=== PATIENT | male | born 1935 | race Caucasian/White ===

== ENCOUNTER 2016-04-17 11:52 | Inpatient (IN) | payer MEDICARE, OTHER ==
[2016-04-17] MEDS ORDERED: ASPIRIN EC81 MG PO (14:26)
[2016-04-17] MEDS ORDERED: PULMICORT0.5 MG/22 INH (14:27)
[2016-04-17] MEDS ORDERED: COREG12.5 M1 PO (14:28)
[2016-04-17] MEDS ORDERED: COREG25 M1 PO (14:29)
[2016-04-17] MEDS ORDERED: IPRAT-ALBUT 0.5-3 ML INH (14:31)
[2016-04-17] MEDS ORDERED: GLUCOSAMINE HC500 M1 PO (14:32)
[2016-04-17] MEDS ORDERED: FISH OIL 11000 MG/CA PO (14:32)
[2016-04-17] MEDS ORDERED: ICAPS TABLET1 EACH PO (14:36)
[2016-04-17] MEDS ORDERED: LASIX40 M1 PO (14:43)
[2016-04-17] MEDS ORDERED: LANTUS SOL100 UNIT/1 SUBD (14:43)
[2016-04-17] MEDS ORDERED: PRINIVIL5 M1 PO (14:44)
[2016-04-17] MEDS ORDERED: LOPRESSOR50 M1 PO (14:44)
[2016-04-17] MEDS ORDERED: ZOCOR40 M1 PO (14:45)
[2016-04-17] MEDS ORDERED: NOVOLOG100 UNITS/ (14:45)
[2016-04-17 14:47] LABS: BASO % 0.1 % (0-2); EOS % 0.1 % (0-7); HGB-HEMOGLOBIN 7.7 gm/dl (13.5-17.0); IMMATURE GRANULOCYTES ABSOLUTE 0.08 tho/cmm (0-0.03); IMMATURE GRANULOCYTES PERCENT 0.4 % (0-0.3); LYMPH % 11.8 % (20-45); LYMPH ABSOLUTE COUNT 2.5 tho/cmm (0.8-4.5); MCH (MEAN CORPUSCULAR HGB) 28.9 pg (28.0-32.0); MCHC MEAN CORPUSCULAR HGB CONC 34.2 % (32.0-36.0); MCV (MEAN CELL VOLUME) 84.6 fl (82.0-96.0); MEAN PLATELET VOLUME 11.2 cmc (9.4-12.4); MONO % 11.7 % (0-12); MONOCYTE ABSOLUTE COUNT 2.5 tho/cmm (0.0-1.2); NEUTROPHIL ABSOLUTE COUNT 15.8 tho/cmm (1.6-8.0); NEUTROPHIL-AUTOMATED 15.8 tho/cmm (1.6-8.0); NEUTROPHILS % 75.9 % (40-80); PLATELET COUNT 201 tho/cmm (150-450); RED BLOOD COUNT 2.66 mil/cmm (4.40-5.70); RED CELL DISTRIBUTION WIDTH 14.8 % (12.4-16.4); WHITE BLOOD COUNT 20.9 tho/cmm (4.0-10.0)
[2016-04-17 14:49] LABS: ABG CO2 ARTERIAL 21 mmol/L (21-27); ARTERIAL BLD GAS O2 SATURATION 98 % (95-98); ARTERIAL BLOOD GAS PCO2 40 mmHg (32-45); ARTERIAL PO2 103 mmHg (70-100); BICARBONATE 20 mmol/L (21-28); BLOOD GAS BASE EXCESS -5 mM/L (-/+3); PH 7.32 Units (7.35-7.45)
[2016-04-17 14:50] LABS: INR 1.1 INR (0.9-1.1); PROTHROMBIN TIME 12.4 SECONDS (9.0-13.6)
[2016-04-17 15:02] LABS: ALB/GLOB RATIO 0.7 (0.8-2.0); ALBUMIN 2.3 g/dl (3.5-5.0); ALKALINE PHOSPHATASE 75 U/L (33-138); ALT/SGPT 10 U/L (12-78); ANION GAP 19 mmol/L (0-20); AST/SGOT 11 U/L (10-40); BILIRUBIN,TOTAL 0.3 mg/dl (0.0-1.5); BLOOD UREA NITROGEN 138 mg/dl (6-24); CALCIUM 7.6 mg/dl (8.5-10.5); CARBON DIOXIDE-VENOUS 22 mmol/L (22-32); CHLORIDE 95 mmol/l (96-110); CREATININE 3.45 mg/dl (0.60-1.30); GLUCOSE 329 mg/dL (70-110); POTASSIUM 4.4 mmol/L (3.7-5.1); SODIUM 132 mmol/L (135-145); eGFR VALUE FOR BLACK 18 mL/Min
[2016-04-17 15:14] LABS: HCT-HEMATOCRIT 22.5 % (36.0-53.5)
[2016-04-17 15:17] LABS: PROCALCITONIN 0.19 ng/ml (0.05-0.09)
[2016-04-17 15:45] LABS: URINE BILIRUBIN NEGATIVE (NEG); URINE BLOOD LARGE (NEG); URINE GLUCOSE (UA) NEGATIVE (NEG); URINE KETONE NEGATIVE (NEG); URINE LEUKOCYTE ESTERASE POSITIVE (NEG); URINE NITRITE NEGATIVE (NEG); URINE PROTEIN SMALL (NEG); URINE SPECIFIC GRAVITY 1.015 (1.003-1.030)
[2016-04-17 15:52] LABS: URINE APPEARANCE HAZY; URINE COLOR YELLOW
[2016-04-17 16:07] LABS: URINE AMORPHOUS 2+; URINE EPITHELIAL CELLS 0 /[HPF] (0-10)
[2016-04-17 16:08] LABS: ANION GAP 18 mmol/L (0-20); BLOOD UREA NITROGEN 136 mg/dl (6-24); CALCIUM 7.8 mg/dl (8.5-10.5); CARBON DIOXIDE-VENOUS 23 mmol/L (22-32); CHLORIDE 95 mmol/l (96-110); CREATININE 3.19 mg/dl (0.60-1.30); GLUCOSE 322 mg/dL (70-110); POTASSIUM 4.4 mmol/L (3.7-5.1); SODIUM 132 mmol/L (135-145); eGFR VALUE FOR BLACK 20 mL/Min
[2016-04-17 17:13] LABS: BASO % 0.1 % (0-2); EOS % 0.5 % (0-7); EOSINOPHIL ABSOLUTE COUNT 0.1 tho/cmm (0.0-0.7); HGB-HEMOGLOBIN 9.5 gm/dl (13.5-17.0); IMMATURE GRANULOCYTES ABSOLUTE 0.08 tho/cmm (0-0.03); IMMATURE GRANULOCYTES PERCENT 0.4 % (0-0.3); LYMPH % 11.1 % (20-45); LYMPH ABSOLUTE COUNT 2.4 tho/cmm (0.8-4.5); MCH (MEAN CORPUSCULAR HGB) 28.8 pg (28.0-32.0); MCHC MEAN CORPUSCULAR HGB CONC 33.7 % (32.0-36.0); MCV (MEAN CELL VOLUME) 85.5 fl (82.0-96.0); MEAN PLATELET VOLUME 10.8 cmc (9.4-12.4); MONO % 8.2 % (0-12); MONOCYTE ABSOLUTE COUNT 1.8 tho/cmm (0.0-1.2); NEUTROPHILS % 79.7 % (40-80); PLATELET COUNT 230 tho/cmm (150-450); RED CELL DISTRIBUTION WIDTH 14.6 % (12.4-16.4); WHITE BLOOD COUNT 21.3 tho/cmm (4.0-10.0)
[2016-04-17 17:22] LABS: HCT-HEMATOCRIT 28.2 % (36.0-53.5)
[2016-04-17 20:24] LABS: URINE PRT/CR RATIO 0.19 Ratio (0.0-0.20); URINE TOTAL PROTEIN-RANDOM 12.4 mg/dl (<11.8)
[2016-04-17 21:03] LABS: HCT-HEMATOCRIT 28.6 % (36.0-53.5); HGB-HEMOGLOBIN 9.8 gm/dl (13.5-17.0); MCV (MEAN CELL VOLUME) 83.9 fl (82.0-96.0); RED CELL DISTRIBUTION WIDTH 14.2 % (12.4-16.4)
[2016-04-18 00:42] LABS: ABG CO2 ARTERIAL 20 mmol/L (21-27); ARTERIAL BLD GAS O2 SATURATION 99 % (95-98); ARTERIAL BLOOD GAS PCO2 36 mmHg (32-45); BICARBONATE 19 mmol/L (21-28); BLOOD GAS BASE EXCESS -6 mM/L (-/+3); PH 7.34 Units (7.35-7.45)
[2016-04-18 00:43] LABS: ARTERIAL PO2 117 mmHg (70-100)
[2016-04-18 04:03] LABS: BASO % 0.2 % (0-2); EOS % 2.8 % (0-7); EOSINOPHIL ABSOLUTE COUNT 0.5 tho/cmm (0.0-0.7); HCT-HEMATOCRIT 27.4 % (36.0-53.5); HGB-HEMOGLOBIN 9.5 gm/dl (13.5-17.0); IMMATURE GRANULOCYTES ABSOLUTE 0.05 tho/cmm (0-0.03); IMMATURE GRANULOCYTES PERCENT 0.3 % (0-0.3); LYMPH % 10.3 % (20-45); LYMPH ABSOLUTE COUNT 1.9 tho/cmm (0.8-4.5); MCH (MEAN CORPUSCULAR HGB) 28.7 pg (28.0-32.0); MCHC MEAN CORPUSCULAR HGB CONC 34.7 % (32.0-36.0); MCV (MEAN CELL VOLUME) 82.8 fl (82.0-96.0); MEAN PLATELET VOLUME 9.8 cmc (9.4-12.4); MONO % 8.4 % (0-12); MONOCYTE ABSOLUTE COUNT 1.6 tho/cmm (0.0-1.2); NEUTROPHIL ABSOLUTE COUNT 14.4 tho/cmm (1.6-8.0); NEUTROPHIL-AUTOMATED 14.4 tho/cmm (1.6-8.0); PLATELET COUNT 201 tho/cmm (150-450); RED BLOOD COUNT 3.31 mil/cmm (4.40-5.70); RED CELL DISTRIBUTION WIDTH 14.5 % (12.4-16.4); WHITE BLOOD COUNT 18.5 tho/cmm (4.0-10.0)
[2016-04-18 04:31] LABS: ALBUMIN 2.4 g/dl (3.5-5.0); ANION GAP 14 mmol/L (0-20); BLOOD UREA NITROGEN 115 mg/dl (6-24); CALCIUM 7.7 mg/dl (8.5-10.5); CARBON DIOXIDE-VENOUS 22 mmol/L (22-32); CHLORIDE 102 mmol/l (96-110); CREATININE 2.47 mg/dl (0.60-1.30); GLUCOSE 267 mg/dL (70-110); MAGNESIUM 1.7 mg/dl (1.3-2.6); PHOSPHOROUS 2.7 mg/dl (2.5-4.9); POTASSIUM 3.8 mmol/L (3.7-5.1); SODIUM 134 mmol/L (135-145); eGFR VALUE FOR BLACK 28 mL/Min
[2016-04-19 04:02] LABS: BASO % 0.2 % (0-2); EOS % 6.2 % (0-7); EOSINOPHIL ABSOLUTE COUNT 0.8 tho/cmm (0.0-0.7); HCT-HEMATOCRIT 24.5 % (36.0-53.5); HGB-HEMOGLOBIN 8.3 gm/dl (13.5-17.0); IMMATURE GRANULOCYTES ABSOLUTE 0.03 tho/cmm (0-0.03); IMMATURE GRANULOCYTES PERCENT 0.2 % (0-0.3); LYMPH % 18.5 % (20-45); LYMPH ABSOLUTE COUNT 2.2 tho/cmm (0.8-4.5); MCH (MEAN CORPUSCULAR HGB) 28.5 pg (28.0-32.0); MCHC MEAN CORPUSCULAR HGB CONC 33.9 % (32.0-36.0); MCV (MEAN CELL VOLUME) 84.2 fl (82.0-96.0); MEAN PLATELET VOLUME 10.1 cmc (9.4-12.4); MONO % 9.1 % (0-12); MONOCYTE ABSOLUTE COUNT 1.1 tho/cmm (0.0-1.2); NEUTROPHIL ABSOLUTE COUNT 7.9 tho/cmm (1.6-8.0); NEUTROPHIL-AUTOMATED 7.9 tho/cmm (1.6-8.0); NEUTROPHILS % 65.8 % (40-80); PLATELET COUNT 178 tho/cmm (150-450); RED BLOOD COUNT 2.91 mil/cmm (4.40-5.70); RED CELL DISTRIBUTION WIDTH 14.9 % (12.4-16.4)
[2016-04-19 04:03] LABS: ALBUMIN 2.3 g/dl (3.5-5.0); ANION GAP 12 mmol/L (0-20); BLOOD UREA NITROGEN 61 mg/dl (6-24); CALCIUM 7.7 mg/dl (8.5-10.5); CARBON DIOXIDE-VENOUS 24 mmol/L (22-32); CHLORIDE 111 mmol/l (96-110); MAGNESIUM 1.9 mg/dl (1.3-2.6); PHOSPHOROUS 1.9 mg/dl (2.5-4.9); POTASSIUM 3.5 mmol/L (3.7-5.1); SODIUM 143 mmol/L (135-145); eGFR VALUE FOR BLACK 53 mL/Min
[2016-04-19 04:10] LABS: CREATININE 1.44 mg/dl (0.60-1.30); GLUCOSE 125 mg/dL (70-110)
[2016-04-19 16:06] LABS: HCT-HEMATOCRIT 25.3 % (36.0-53.5); HGB-HEMOGLOBIN 8.5 gm/dl (13.5-17.0); MCV (MEAN CELL VOLUME) 84.9 fl (82.0-96.0); RED CELL DISTRIBUTION WIDTH 15.2 % (12.4-16.4)
[2016-04-20 04:17] LABS: BASO % 0.2 % (0-2); EOS % 7.9 % (0-7); EOSINOPHIL ABSOLUTE COUNT 0.8 tho/cmm (0.0-0.7); HGB-HEMOGLOBIN 7.9 gm/dl (13.5-17.0); IMMATURE GRANULOCYTES ABSOLUTE 0.02 tho/cmm (0-0.03); IMMATURE GRANULOCYTES PERCENT 0.2 % (0-0.3); LYMPH % 22.4 % (20-45); LYMPH ABSOLUTE COUNT 2.2 tho/cmm (0.8-4.5); MCH (MEAN CORPUSCULAR HGB) 28.6 pg (28.0-32.0); MCHC MEAN CORPUSCULAR HGB CONC 33.6 % (32.0-36.0); MCV (MEAN CELL VOLUME) 85.1 fl (82.0-96.0); MEAN PLATELET VOLUME 10.1 cmc (9.4-12.4); MONO % 9.6 % (0-12); NEUTROPHIL ABSOLUTE COUNT 5.9 tho/cmm (1.6-8.0); NEUTROPHIL-AUTOMATED 5.9 tho/cmm (1.6-8.0); NEUTROPHILS % 59.7 % (40-80); PLATELET COUNT 187 tho/cmm (150-450); RED BLOOD COUNT 2.76 mil/cmm (4.40-5.70); RED CELL DISTRIBUTION WIDTH 15.4 % (12.4-16.4); WHITE BLOOD COUNT 9.9 tho/cmm (4.0-10.0)
[2016-04-20 04:23] LABS: ALBUMIN 2.3 g/dl (3.5-5.0); ANION GAP 10 mmol/L (0-20); CALCIUM 7.6 mg/dl (8.5-10.5); CARBON DIOXIDE-VENOUS 25 mmol/L (22-32); CHLORIDE 113 mmol/l (96-110); GLUCOSE 120 mg/dL (70-110); HCT-HEMATOCRIT 23.5 % (36.0-53.5); MAGNESIUM 1.7 mg/dl (1.3-2.6); PHOSPHOROUS 1.8 mg/dl (2.5-4.9); POTASSIUM 3.7 mmol/L (3.7-5.1); SODIUM 144 mmol/L (135-145); eGFR VALUE FOR BLACK 74 mL/Min
[2016-04-20 04:26] LABS: BLOOD UREA NITROGEN 29 mg/dl (6-24)
[2016-04-21 06:27] LABS: BASO % 0.2 % (0-2); EOS % 9.5 % (0-7); EOSINOPHIL ABSOLUTE COUNT 1.1 tho/cmm (0.0-0.7); HCT-HEMATOCRIT 28.8 % (36.0-53.5); HGB-HEMOGLOBIN 9.5 gm/dl (13.5-17.0); IMMATURE GRANULOCYTES ABSOLUTE 0.03 tho/cmm (0-0.03); IMMATURE GRANULOCYTES PERCENT 0.3 % (0-0.3); LYMPH % 23.4 % (20-45); LYMPH ABSOLUTE COUNT 2.8 tho/cmm (0.8-4.5); MCH (MEAN CORPUSCULAR HGB) 28.4 pg (28.0-32.0); MCV (MEAN CELL VOLUME) 86.2 fl (82.0-96.0); MEAN PLATELET VOLUME 10.2 cmc (9.4-12.4); MONO % 8.8 % (0-12); NEUTROPHIL ABSOLUTE COUNT 6.9 tho/cmm (1.6-8.0); NEUTROPHIL-AUTOMATED 6.9 tho/cmm (1.6-8.0); NEUTROPHILS % 57.8 % (40-80); PLATELET COUNT 224 tho/cmm (150-450); RED BLOOD COUNT 3.34 mil/cmm (4.40-5.70); WHITE BLOOD COUNT 11.8 tho/cmm (4.0-10.0)
[2016-04-21 06:36] LABS: ANION GAP 12 mmol/L (0-20); BLOOD UREA NITROGEN 16 mg/dl (6-24); CALCIUM 7.8 mg/dl (8.5-10.5); CARBON DIOXIDE-VENOUS 25 mmol/L (22-32); CHLORIDE 112 mmol/l (96-110); CREATININE 0.95 mg/dl (0.60-1.30); GLUCOSE 133 mg/dL (70-110); PHOSPHOROUS 2.3 mg/dl (2.5-4.9); POTASSIUM 3.7 mmol/L (3.7-5.1); SODIUM 145 mmol/L (135-145); eGFR VALUE FOR BLACK 88 mL/Min
[2016-04-22 05:24] LABS: BASO % 0.2 % (0-2); EOS % 5.9 % (0-7); EOSINOPHIL ABSOLUTE COUNT 0.8 tho/cmm (0.0-0.7); HCT-HEMATOCRIT 27.1 % (36.0-53.5); HGB-HEMOGLOBIN 8.9 gm/dl (13.5-17.0); IMMATURE GRANULOCYTES ABSOLUTE 0.06 tho/cmm (0-0.03); IMMATURE GRANULOCYTES PERCENT 0.5 % (0-0.3); LYMPH % 20.4 % (20-45); LYMPH ABSOLUTE COUNT 2.7 tho/cmm (0.8-4.5); MCH (MEAN CORPUSCULAR HGB) 28.6 pg (28.0-32.0); MCHC MEAN CORPUSCULAR HGB CONC 32.8 % (32.0-36.0); MCV (MEAN CELL VOLUME) 87.1 fl (82.0-96.0); MEAN PLATELET VOLUME 10.1 cmc (9.4-12.4); MONO % 9.1 % (0-12); MONOCYTE ABSOLUTE COUNT 1.2 tho/cmm (0.0-1.2); NEUTROPHIL ABSOLUTE COUNT 8.4 tho/cmm (1.6-8.0); NEUTROPHIL-AUTOMATED 8.4 tho/cmm (1.6-8.0); NEUTROPHILS % 63.9 % (40-80); PLATELET COUNT 230 tho/cmm (150-450); RED BLOOD COUNT 3.11 mil/cmm (4.40-5.70); WHITE BLOOD COUNT 13.1 tho/cmm (4.0-10.0)
[2016-04-23 10:29] LABS: BASO % 0.2 % (0-2); EOS % 5.3 % (0-7); EOSINOPHIL ABSOLUTE COUNT 0.8 tho/cmm (0.0-0.7); HCT-HEMATOCRIT 28.9 % (36.0-53.5); HGB-HEMOGLOBIN 9.2 gm/dl (13.5-17.0); IMMATURE GRANULOCYTES ABSOLUTE 0.06 tho/cmm (0-0.03); IMMATURE GRANULOCYTES PERCENT 0.4 % (0-0.3); LYMPH % 18.1 % (20-45); LYMPH ABSOLUTE COUNT 2.7 tho/cmm (0.8-4.5); MCHC MEAN CORPUSCULAR HGB CONC 31.8 % (32.0-36.0); MCV (MEAN CELL VOLUME) 88.1 fl (82.0-96.0); MONO % 11.2 % (0-12); MONOCYTE ABSOLUTE COUNT 1.7 tho/cmm (0.0-1.2); NEUTROPHIL ABSOLUTE COUNT 9.8 tho/cmm (1.6-8.0); NEUTROPHIL-AUTOMATED 9.8 tho/cmm (1.6-8.0); NEUTROPHILS % 64.8 % (40-80); PLATELET COUNT 273 tho/cmm (150-450); RED BLOOD COUNT 3.28 mil/cmm (4.40-5.70); RED CELL DISTRIBUTION WIDTH 15.7 % (12.4-16.4); WHITE BLOOD COUNT 15.1 tho/cmm (4.0-10.0)
[2016-04-24 06:30] LABS: BASO % 0.1 % (0-2); EOS % 5.1 % (0-7); EOSINOPHIL ABSOLUTE COUNT 0.7 tho/cmm (0.0-0.7); HCT-HEMATOCRIT 28.2 % (36.0-53.5); HGB-HEMOGLOBIN 9.3 gm/dl (13.5-17.0); IMMATURE GRANULOCYTES ABSOLUTE 0.06 tho/cmm (0-0.03); IMMATURE GRANULOCYTES PERCENT 0.4 % (0-0.3); LYMPH % 16.5 % (20-45); LYMPH ABSOLUTE COUNT 2.4 tho/cmm (0.8-4.5); MCH (MEAN CORPUSCULAR HGB) 28.7 pg (28.0-32.0); MEAN PLATELET VOLUME 9.9 cmc (9.4-12.4); MONO % 10.7 % (0-12); MONOCYTE ABSOLUTE COUNT 1.5 tho/cmm (0.0-1.2); NEUTROPHIL ABSOLUTE COUNT 9.7 tho/cmm (1.6-8.0); NEUTROPHIL-AUTOMATED 9.7 tho/cmm (1.6-8.0); NEUTROPHILS % 67.2 % (40-80); PLATELET COUNT 290 tho/cmm (150-450); RED BLOOD COUNT 3.24 mil/cmm (4.40-5.70); RED CELL DISTRIBUTION WIDTH 15.4 % (12.4-16.4); WHITE BLOOD COUNT 14.4 tho/cmm (4.0-10.0)
[2016-04-24 06:35] LABS: ANION GAP 11 mmol/L (0-20); BLOOD UREA NITROGEN 11 mg/dl (6-24); CALCIUM 7.7 mg/dl (8.5-10.5); CARBON DIOXIDE-VENOUS 28 mmol/L (22-32); CHLORIDE 103 mmol/l (96-110); CREATININE 1.08 mg/dl (0.60-1.30); GLUCOSE 152 mg/dL (70-110); POTASSIUM 3.4 mmol/L (3.7-5.1); SODIUM 139 mmol/L (135-145); eGFR VALUE FOR BLACK 75 mL/Min
[2016-04-25 04:50] LABS: ANION GAP 15 mmol/L (0-20); BLOOD UREA NITROGEN 19 mg/dl (6-24); CALCIUM 7.9 mg/dl (8.5-10.5); CARBON DIOXIDE-VENOUS 27 mmol/L (22-32); CHLORIDE 98 mmol/l (96-110); POTASSIUM 3.8 mmol/L (3.7-5.1); SODIUM 136 mmol/L (135-145); eGFR VALUE FOR BLACK 60 mL/Min
[2016-04-25 04:53] LABS: GLUCOSE 250 mg/dL (70-110)
[2016-04-26 04:52] LABS: ANION GAP 12 mmol/L (0-20); CALCIUM 7.8 mg/dl (8.5-10.5); CARBON DIOXIDE-VENOUS 28 mmol/L (22-32); CHLORIDE 99 mmol/l (96-110); GLUCOSE 328 mg/dL (70-110); POTASSIUM 3.8 mmol/L (3.7-5.1); SODIUM 135 mmol/L (135-145); eGFR VALUE FOR BLACK 60 mL/Min
[2016-04-26 04:53] LABS: BLOOD UREA NITROGEN 34 mg/dl (6-24)
[2016-04-26 04:56] LABS: BASO % 0.1 % (0-2); HCT-HEMATOCRIT 28.1 % (36.0-53.5); HGB-HEMOGLOBIN 9.3 gm/dl (13.5-17.0); IMMATURE GRANULOCYTES ABSOLUTE 0.04 tho/cmm (0-0.03); IMMATURE GRANULOCYTES PERCENT 0.2 % (0-0.3); LYMPH % 6.8 % (20-45); LYMPH ABSOLUTE COUNT 1.2 tho/cmm (0.8-4.5); MCH (MEAN CORPUSCULAR HGB) 28.3 pg (28.0-32.0); MCHC MEAN CORPUSCULAR HGB CONC 33.1 % (32.0-36.0); MCV (MEAN CELL VOLUME) 85.4 fl (82.0-96.0); MEAN PLATELET VOLUME 10.4 cmc (9.4-12.4); MONO % 4.3 % (0-12); MONOCYTE ABSOLUTE COUNT 0.8 tho/cmm (0.0-1.2); NEUTROPHIL ABSOLUTE COUNT 15.6 tho/cmm (1.6-8.0); NEUTROPHIL-AUTOMATED 15.6 tho/cmm (1.6-8.0); NEUTROPHILS % 88.6 % (40-80); PLATELET COUNT 349 tho/cmm (150-450); RED BLOOD COUNT 3.29 mil/cmm (4.40-5.70); RED CELL DISTRIBUTION WIDTH 14.9 % (12.4-16.4); WHITE BLOOD COUNT 17.6 tho/cmm (4.0-10.0)
[2016-04-26] MEDS ORDERED: DIFLUCAN40 MG/1 ML PO (11:31)
[2016-04-26] MEDS ORDERED: COMBIVENT RESPIM4 G1 INH ×2 (11:32)
[2016-04-26] MEDS ORDERED: BROVANA15 MCG/22 INH (11:33)
[2016-04-26] MEDS ORDERED: TYLENOL325 M2 PO (11:35)
[2016-04-26] MEDS ORDERED: PROTONIX40 M2 PO (11:37)
[2016-04-26] MEDS ORDERED: COLACE100 M1 PO (11:37)
[2016-04-26] MEDS ORDERED: SOLU MEDRO IV (11:38)
[2016-04-26] MEDS ORDERED: NOVOLOG100 UNITS/ (11:40)
[2016-04-26] MEDS ORDERED: COREG6.25 M1 PO (11:41)
== END 2016-04-26 12:20 | DRG 377 ==
LOC: CCU 11:52 → PCUA 04-20 19:30
PROVIDERS: Internal Medicine Cardiovascular Disease; Internal Medicine Critical Care Medicine; Internal Medicine Nephrology; Orthopaedic Surgery Sports Medicine; Physician Assistant; Specialist; ADMIT Family Medicine
PROC: 0DJ08ZZ Inspection of Upper Intestinal Tract, Via Natural or Artificial Opening Endoscopic (ICD-10-PCS; principal; 2016-04-17)
PROC: 30233N1 Transfusion of Nonautologous Red Blood Cells into Peripheral Vein, Percutaneous Approach (ICD-10-PCS; 2016-04-17)
PROC: 02HV33Z Insertion of Infusion Device into Superior Vena Cava, Percutaneous Approach (ICD-10-PCS; 2016-04-17)
PROC: 0DJ08ZZ Inspection of Upper Intestinal Tract, Via Natural or Artificial Opening Endoscopic (ICD-10-PCS; 2016-04-20)
PROC: 0DB78ZX Excision of Stomach, Pylorus, Via Natural or Artificial Opening Endoscopic, Diagnostic (ICD-10-PCS; 2016-04-23)
DX: K26.4 Chronic or unspecified duodenal ulcer with hemorrhage (principal); R57.1 Hypovolemic shock; N17.9 Acute kidney failure, unspecified; I50.43 Acute on chronic combined systolic (congestive) and diastolic (congestive) heart failure; D62 Acute posthemorrhagic anemia; E87.1 Hypo-osmolality and hyponatremia; J44.1 Chronic obstructive pulmonary disease with (acute) exacerbation; E03.9 Hypothyroidism, unspecified; E78.5 Hyperlipidemia, unspecified; E66.9 Obesity, unspecified; R33.9 Retention of urine, unspecified; G47.33 Obstructive sleep apnea (adult) (pediatric); M25.462 Effusion, left knee; M25.461 Effusion, right knee; I12.9 Hypertensive chronic kidney disease with stage 1 through stage 4 chronic kidney disease, or unspecified chronic kidney disease; N18.3 Chronic kidney disease, stage 3 (moderate); I25.10 Atherosclerotic heart disease of native coronary artery without angina pectoris; Z95.1 Presence of aortocoronary bypass graft; I25.2 Old myocardial infarction; N32.0 Bladder-neck obstruction; I25.5 Ischemic cardiomyopathy; Z91.19 Patient's noncompliance with other medical treatment and regimen; Z79.82 Long term (current) use of aspirin; Z68.38 Body mass index [BMI] 38.0-38.9, adult
CPT/HCPCS: C1751; C1758; C9113; J1815; J1940; J2543; J2920; J3370; J3475; J7030; J7040; J7050; P9016; P9040